=== PATIENT | male | born 1955 | race Caucasian/White ===

== ENCOUNTER → 2017-02-23 | Outpatient (CLI) | payer MEDICARE, OTHER ==
[~2017-02-23] MED LIST: CEPH500C PO; CLIN150C14 PO
--- NOTE | 2017-02-23 08:51 | REP ---
Clinical: Pain. Technique: AP and bilateral oblique views of the right toes. Comparison: 12/30/2001. Findings: The osseous structures and joint spaces are essentially normal for age. Mild degenerative changes involving the first metatarsophalangeal and interphalangeal joint noted. Soft tissue swelling surrounding the second toe is suggested. No subcutaneous emphysema or radiodense foreign body. Impression: Soft-tissue swelling. Mild degenerative changes involving the first toe. Signed by Dean Reddy MD 02/23/2017 08:42 A
== END ==
LOC: M WUC 08:19
PROVIDERS: ATTEND Physician Assistant
DX: M79.674 Pain in right toe(s) (principal)

== ENCOUNTER 2017-02-24 09:35 | Emergency (ER) | payer MEDICARE, OTHER ==
[~2017-02-24] VITALS: Ht 172.7 cm; Wt 75.3 kg
[2017-02-24 09:36] VITALS: BP 122/84
[2017-02-24] MEDS ORDERED: CEPH500C PO (09:44)
[2017-02-24 10:23] LABS: BASO # 0.1 K/mm3 (0.0-0.2); BASO % 0.8 % (0.0-1.0); EOS # 0.2 K/mm3 (0.0-0.50); EOS % 2.9 % (0.0-3.0); LARGE UNSTAINED CELL # 0.1 K/mm3 (0.0-0.4); LARGE UNSTAINED CELL % 1.4 % (0.0-4.0); LYMPH # 0.9 K/mm3 (1.5-4.5); LYMPH % 11.4 % (24.0-44.0); MEAN CORPUSCULAR HGB CONC 35.7 g/dl (32.0-36.5); MEAN CORPUSCULAR VOLUME 86.8 fl (80.0-96.0); MONO # 0.4 K/mm3 (0.0-0.8); MONO % 5.6 % (0.0-5.0); NEUTROPHILS # 5.8 K/mm3 (1.8-7.7); NEUTROPHILS % 77.8 % (36.0-66.0); PLATELET COUNT, AUTOMATED 241 k/mm3 (150-450); RED CELL DISTRIBUTION WIDTH 12.8 % (11.5-14.5); WHITE BLOOD COUNT 7.4 K/mm3 (4.0-10.0)
--- NOTE | 2017-02-24 10:47 | REP ---
Clinical: Right lower extremity pain and swelling . Technique: Carreno scale and color Doppler evaluation using linear high frequency transducer. Findings: Ultrasound examination of the right lower extremity deep venous structures from the common femoral vein to the popliteal vein demonstrates normal compressibility flow and wave patterns in response to respiration and augmentation. There is no evidence for deep venous thrombosis. Impression: No evidence for deep venous thrombosis. Signed by Dean Reddy MD 02/24/2017 10:38 A
--- NOTE | 2017-02-24 10:48 | REP ---
Clinical: Pain and swelling . Technique: AP, lateral, bilateral oblique views right foot . Findings: The osseous structures and joint spaces are intact and normal. There is no evidence for acute fracture or dislocation. Surrounding soft tissues are unremarkable. No subcutaneous emphysema or radiodense foreign body. Impression: Age appropriate examination. No acute fracture or dislocation. Signed by Dean Reddy MD 02/24/2017 10:38 A
[2017-02-24 11:14] LABS: ANION GAP 6 MEQ/L (8-16); BLOOD UREA NITROGEN 20 MG/DL (7-18); CALCIUM LEVEL 8.6 MG/DL (8.8-10.2); CARBON DIOXIDE LEVEL 28 MEQ/L (21-32); CHLORIDE LEVEL 107 MEQ/L (98-107); CREATININE FOR GFR 1.07 MG/DL (0.70-1.30); GLOMERULAR FILTRATION RATE > 60.0 (>49); GLUCOSE, FASTING 83 MG/DL (80-110); POTASSIUM SERUM 4.3 MEQ/L (3.5-5.1); SODIUM LEVEL 141 MEQ/L (136-145); URIC ACID 4.5 MG/DL (3.5-7.2)
[2017-02-24 11:20] LABS: ERYTHROCYTE SEDIMENTATION RATE 4 mm/hr (0-20)
[2017-02-24] MEDS ORDERED: CLINDAMYCIN 900 MG in APPROPRIATE DILUENT 1 EA IV ONE (12:00)
[2017-02-24] MEDS ORDERED: CLIN150C14 PO (12:28)
== END 2017-02-24 12:57 | disposition home or self-care (01) ==
LOC: M ED 09:35
DX: L03.031 Cellulitis of right toe (principal)

== ENCOUNTER 2017-02-25 10:34 | Emergency (ER) | payer MEDICARE ==
[2017-02-25 12:48] VITALS: BP 130/95
== END 2017-02-25 13:01 | disposition home or self-care (01) ==
LOC: M ED 10:34
DX: L03.031 Cellulitis of right toe (principal)

== ENCOUNTER → 2017-03-21 | Outpatient (REF) | payer MEDICARE | LOC: M LAB REF 17:33 | PROVIDERS: ATTEND Physician Assistant | DX: J02.9 Acute pharyngitis, unspecified (principal) ==

== ENCOUNTER → 2017-08-03 | Outpatient (REF) | payer MEDICARE | LOC: M LAB REF 18:49 | PROVIDERS: ATTEND Nurse Practitioner Family | DX: E34.9 Endocrine disorder, unspecified (principal) ==

== ENCOUNTER → 2017-12-22 | Outpatient (CLI) | payer MEDICARE | LOC: M WUC 14:12 | DX: S63.611A Unspecified sprain of left index finger, initial encounter (principal); X58.XXXA Exposure to other specified factors, initial encounter; Y92.89 Other specified places as the place of occurrence of the external cause | CPT/HCPCS: 73140 ==

== ENCOUNTER → 2018-08-04 | Outpatient (REF) | payer MEDICARE ==
[2018-08-04 12:45] LABS: TESTOSTERONE 519 NG/DL (241-827)
== END ==
LOC: M LAB REF 12:14
DX: E29.1 Testicular hypofunction (principal)
CPT/HCPCS: 84403

== ENCOUNTER → 2020-08-02 | Outpatient (CLI) | payer MEDICARE ==
[2020-08-04 16:08] LABS: Lyme Disease IgG/IgM Antibodie <0.91 ISR (0.00-0.90); Lyme Disease IgM Ab Quantitati <0.80 index (0.00-0.79)
== END ==
LOC: M WUC 15:48
PROVIDERS: ATTEND Physician Assistant
DX: M79.10 Myalgia, unspecified site (principal)

== ENCOUNTER → 2020-11-13 | Outpatient (REF) | payer MEDICARE ==
[~2020-11-13] MED LIST changes: -CLIN150C14 PO; +CLIN150C15 PO
[2020-11-15 14:09] LABS: PSA TOTAL 3.1 ng/mL (0.0-4.0)
== END ==
LOC: M LAB REF 16:25
PROVIDERS: ATTEND Internal Medicine
DX: R97.20 Elevated prostate specific antigen [PSA] (principal)

== ENCOUNTER → 2020-11-29 | Outpatient (CLI) | payer MEDICARE ==
--- NOTE | 2020-11-29 13:33 | REP ---
INDICATION: RIGHT BUNDLE-BRANCH BLOCK. COMPARISON: None TECHNIQUE: Upright PA and lateral chest. FINDINGS: The lung jj are clear. Cardiac size is normal. The lin, mediastinum and skeletal structures are unremarkable. IMPRESSION: Essentially negative PA and lateral chest <Electronically signed by Gavin Estrella > 11/29/20 [id number]
== END ==
LOC: M WUC 12:03
PROVIDERS: ATTEND Internal Medicine
DX: I45.10 Unspecified right bundle-branch block (principal)

== ENCOUNTER → 2021-08-02 | Outpatient (CLI) | payer MEDICARE ==
[~2021-08-02] MED LIST changes: -CLIN150C15 PO; +CLIN150C17 PO
--- NOTE | 2021-08-02 09:24 | REP ---
INDICATION: BILATERAL THUMB PAIN COMPARISON: Left hand 12/28/2014. TECHNIQUE: Four views bilateral hands. Some of views, particularly the lateral views, are limited as they are under penetrated. FINDINGS: There is no evidence of acute fracture, dislocation, or intrinsic bone disease.There mild to moderate symmetrical degenerative changes at the joint between the trapezium and base of 1st metacarpal, with joint space narrowing and spurring. IMPRESSION: No fracture or dislocation. 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 <Electronically signed by Gavin Carreno > 08/02/21 [id number]
== END ==
LOC: M WUC 08:52
PROVIDERS: ATTEND Registered Nurse
DX: M19.049 Primary osteoarthritis, unspecified hand (principal)

== ENCOUNTER → 2021-10-04 | Outpatient (CLI) | payer MEDICARE | LOC: M WUC 12:57 | PROVIDERS: ATTEND Registered Nurse | DX: M50.31 Other cervical disc degeneration, high cervical region (principal); M50.321 Other cervical disc degeneration at C4-C5 level; M50.322 Other cervical disc degeneration at C5-C6 level; M50.323 Other cervical disc degeneration at C6-C7 level ==

== ENCOUNTER → 2022-09-22 | Outpatient (CLI) | payer OTHER, MEDICARE | LOC: M RAD 07:29 | PROVIDERS: ATTEND Nurse Practitioner Family | DX: M51.16 Intervertebral disc disorders with radiculopathy, lumbar region (principal); G89.29 Other chronic pain; M48.061 Spinal stenosis, lumbar region without neurogenic claudication ==

== ENCOUNTER → 2023-08-03 | Outpatient (REF) | payer MEDICARE | LOC: M LAB REF 16:24 | PROVIDERS: ATTEND Physician Assistant Medical | DX: M19.049 Primary osteoarthritis, unspecified hand (principal) ==

== ENCOUNTER → 2024-08-05 | Outpatient (REF) | payer MEDICARE | LOC: M LAB REF 12:13 | PROVIDERS: ATTEND Physician Assistant Medical | DX: M19.049 Primary osteoarthritis, unspecified hand (principal) ==